=== PATIENT | male | born 1960 | race Caucasian/White ===

== ENCOUNTER 2018-11-09 12:25 | Observation (INO) | payer BC, OTHER ==
[~2018-11-09] VITALS: Ht 185.4 cm; Wt 131.5 kg
[2018-11-09 12:38] VITALS: BP_SYST 129
[2018-11-09 13:47] LABS: BASOPHILS # (AUTO) 0.1 K/uL (0.0-0.2); BASOPHILS % (AUTO) 0.6 % (0.0-2.0); EOSINOPHILS # (AUTO) 0.1 K/uL (0.0-0.4); EOSINOPHILS % (AUTO) 0.9 % (0.0-4.0); HEMATOCRIT 48.5 % (36-54); HEMOGLOBIN 15.9 g/dL (14.0-18.0); LYMPHOCYTES % (AUTO) 14.8 % (20.5-51.5); MEAN CORPUSCULAR HEMOGLOBIN 28 pg (27-31); MEAN CORPUSCULAR HGB CONC 33 % (32-36); MEAN CORPUSCULAR VOLUME 86 fL (79.0-98.0); MONOCYTES % (AUTO) 7.8 % (1.7-9.3); NEUTROPHILS # (AUTO) 10.2 K/uL (1.8-7.7); NEUTROPHILS % (AUTO) 75.9 % (40.0-70.0); PLATELET COUNT (AUTO) 300 K/uL (130-430); RED BLOOD CELL COUNT(AUTO) 5.64 MIL/uL (4.2-6.2); RED CELL DISTRIBUTION WIDTH 12.6 % (9.0-15.0); WHITE BLOOD COUNT (AUTO) 13.4 K/uL (4.8-10.8)
[2018-11-09 13:50] LABS: CALCIUM 9.4 mg/dL (8.4-11.0); POTASSIUM 4.4 mmol/L (3.5-5.1)
[2018-11-09 13:51] LABS: CREATININE 1.39 mg/dL (0.55-1.30)
[2018-11-09 13:54] LABS: PROTHROMBIN TIME 10.2 SECS (9.5-12.5)
[2018-11-09 13:55] LABS: ALBUMIN 3.6 g/dL (3.4-4.8); TOTAL BILIRUBIN 0.7 mg/dL (0.0-1.0)
[2018-11-09] MEDS ORDERED: MECLIZINE HCL 25 MG TABLET (ANITVERT) PO ONE (16:00)
[2018-11-09] MEDS ORDERED: METOCLOPRAMIDE HCL 10 MG/2 ML VIAL IVP ONE (16:00)
[2018-11-09 16:54] VITALS: BP_SYST 119
[2018-11-09] MEDS ORDERED: TAMS-11 PO (18:19)
[2018-11-09 20:42] VITALS: BP_SYST 108
[2018-11-10 00:32] VITALS: BP_SYST 93
[2018-11-10 09:25] VITALS: BP_SYST 111
[2018-11-10 12:25] VITALS: BP_SYST 106
[2018-11-10 16:14] VITALS: BP_SYST 121
[2018-11-10 16:32] VITALS: BP_SYST 121
== END 2018-11-10 17:00 | disposition home or self-care (01) ==
LOC: SED 12:25 → STU 16:34
PROVIDERS: ADMIT Internal Medicine Hospice and Palliative Medicine; ATTEND Internal Medicine Hospice and Palliative Medicine
DX: R55 Syncope and collapse (principal); N40.0 Benign prostatic hyperplasia without lower urinary tract symptoms; E66.9 Obesity, unspecified
CPT/HCPCS: 36415 ×2; 70450; 71045; 80053; 83880; 84484 ×2; 85025; 85610; 85730; 93005 ×2; 93306; 95816; 96374; 99284; G0378 ×2; J2765; J8597; 99285

== ENCOUNTER 2024-05-04 11:55 | Emergency (ER) | payer BC ==
[~2024-05-04] VITALS: Ht 185.4 cm; Wt 113.4 kg
[~2024-05-04 11:55] MED LIST: TAMS-11 PO
[2024-05-04 12:00] VITALS: BP_SYST 171; PULSE 81; RESP 18; TEMP 97.3; O2SAT 97
[2024-05-04 12:41] LABS: BASOPHILS # (AUTO) 0.1 K/uL (0.0-0.2); EOSINOPHILS # (AUTO) 0.5 K/uL (0.0-0.4); EOSINOPHILS % (AUTO) 6.5 % (0.0-4.0); HEMATOCRIT 49.1 % (36-54); HEMOGLOBIN 15.7 g/dL (14.0-18.0); LYMPHOCYTES # (AUTO) 2.3 K/uL (1.0-5.5); LYMPHOCYTES % (AUTO) 27.7 % (20.5-51.5); MEAN CORPUSCULAR HEMOGLOBIN 27 pg (27-31); MEAN CORPUSCULAR HGB CONC 32 % (32-36); MEAN CORPUSCULAR VOLUME 84 fL (79.0-98.0); MONOCYTES # (AUTO) 0.9 K/uL (0.0-1.0); MONOCYTES % (AUTO) 10.7 % (1.7-9.3); NEUTROPHILS # (AUTO) 4.4 K/uL (1.8-7.7); NEUTROPHILS % (AUTO) 54.1 % (40.0-70.0); PLATELET COUNT (AUTO) 253 K/uL (130-430); RED BLOOD CELL COUNT(AUTO) 5.88 MIL/uL (4.2-6.2); RED CELL DISTRIBUTION WIDTH 14.5 % (9.0-15.0); WHITE BLOOD COUNT (AUTO) 8.2 K/uL (4.8-10.8)
[2024-05-04 12:49] LABS: ALANINE AMINOTRANSFERASE 18 U/L (12-78); ALBUMIN 3.6 g/dL (3.4-4.8); ANION GAP 10 (5-15); ASPARTATE AMINOTRANSFERASE 15 U/L (10-37); CALCIUM 8.6 mg/dL (8.4-11.0); CARBON DIOXIDE 25 mmol/L (23-29); CHLORIDE 107 mmol/L (98-107); CREATININE 1.71 mg/dL (0.55-1.30); GFR AFRICAN AMERICAN 52 mL/min (>90); GLUCOSE 96 mg/dL (74-106); POTASSIUM 3.9 mmol/L (3.5-5.1); SODIUM SERUM 142 mmol/L (136-145); TOTAL PROTEIN, SERUM 7.3 g/dL (6.4-8.3); UREA NITROGEN, BLOOD 26 mg/dL (8-21)
[2024-05-04 12:51] LABS: BILIRUBIN,DIRECT 0.2 mg/dL (0.0-0.3)
[2024-05-04 13:06] LABS: GFR NON AFRICAN-AMERICAN 43 mL/min (>90)
[2024-05-04 14:08] LABS: ABG O2 SAT% ESTIMATE 94.1 % (94.0-100.0); BLOOD GAS BASE EXCESS -3.9 mmol/L (-3.0-3.0); BLOOD GAS HCO3 20.3 mmol/L (21.0-27.0); BLOOD GAS PCO2 34.7 mmHg (32.0-45.0); BLOOD GAS PH 7.384 (7.350-7.450); BLOOD GAS PO2 70.6 mmHg (75.0-100.0)
[2024-05-04 14:09] LABS: ALLEN'S TEST POSITIVE (P)
[2024-05-04] MEDS ORDERED: AUG875 PO (14:16)
[2024-05-04 14:50] VITALS: BP_SYST 126; PULSE 87; RESP 20; TEMP 98.9; O2SAT 94
== END 2024-05-04 14:50 | disposition home or self-care (01) ==
LOC: SED 11:55
DX: J18.9 Pneumonia, unspecified organism (principal); G47.30 Sleep apnea, unspecified; R42 Dizziness and giddiness; R53.1 Weakness; E66.01 Morbid (severe) obesity due to excess calories; Z79.899 Other long term (current) drug therapy
CPT/HCPCS: 36415; 36600; 71045; 80048; 80076; 82803; 82810-TC; 83880; 84484; 85025; 85379; 93005; 99285